=== PATIENT | female | born 1950 | race Caucasian/White ===

== ENCOUNTER → 2018-01-03 10:38 | Outpatient (CLI) | payer OTHER, SELFPAY | PROVIDERS: Family Provider Family Medicine; PCP Family Medicine; Visit Provider Physician Assistant | DX: G96.0 Cerebrospinal fluid leak (principal); H92.11 Otorrhea, right ear | CPT/HCPCS: 87070; 87075; 87077; 87147; 87186; 87205 ==

== ENCOUNTER → 2018-01-19 12:28 | Outpatient (CLI) | payer OTHER, SELFPAY | PROVIDERS: Family Provider Family Medicine; PCP Family Medicine; Visit Provider Physician Assistant | DX: H92.11 Otorrhea, right ear (principal) | CPT/HCPCS: 87070; 87077; 87147; 87186; 87205 ==

== ENCOUNTER → 2018-07-21 11:11 | Outpatient (CLI) | payer OTHER, SELFPAY ==
[2018-07-21 12:15] LABS: Cholesterol 213 mg/dL (140-199); HDL Cholesterol 39 mg/dL (40-60); LDL Cholesterol Calculated 135 mg/dL (<100); Triglycerides 195 mg/dL (35-150)
[2018-07-21 12:18] LABS: Hemoglobin A1C% w Est Avg Glu 7.4 % (4.0-6.0)
== END ==
PROVIDERS: PCP Student in an Organized Health Care Education/Training Program; Visit Provider Student in an Organized Health Care Education/Training Program
DX: E11.9 Type 2 diabetes mellitus without complications (principal)
CPT/HCPCS: 36415; 80061; 83036

== ENCOUNTER → 2019-05-17 13:27 | Outpatient (CLI) | payer OTHER, SELFPAY ==
[2019-05-17 14:36] LABS: Hemoglobin A1C% w Est Avg Glu 7.6 % (4.0-6.0)
[2019-05-17 15:07] LABS: BUN Creatinine Ratio 18.3 (6-22); Blood Urea Nitrogen 11 mg/dL (7-17); Carbon Dioxide 26 mmol/L (22-32); Chloride 103 mmol/L (98-107); Estimated Glomerular Filt Rate > 60.0 mL/min (>60); Glucose 150 mg/dL (80-110); HEMOLYSIS < 15 (0-50); Potassium 4.9 mmol/L (3.4-5.1); Sodium 138 mmol/L (137-145)
[2019-05-17 16:56] LABS: Microalbumin Urine Random 3.6 mg/dL (0-1.6)
[2019-05-17 16:57] LABS: Creatinine Urine Random 201.7 mg/dL; Microalbumi Creatinin Ratio Ur 17.8 ug/mg CR (<30)
== END ==
PROVIDERS: PCP Student in an Organized Health Care Education/Training Program; Visit Provider Student in an Organized Health Care Education/Training Program
DX: E11.9 Type 2 diabetes mellitus without complications (principal); I10 Essential (primary) hypertension
CPT/HCPCS: 36415; 80048; 82043; 82570; 83036

== ENCOUNTER 2020-05-29 10:31 | Emergency (ER) | payer OTHER, SELFPAY ==
[2020-05-29] VITALS (8 sets, daily range): BP systolic 110–198; BP diastolic 56–84; PULSE 81–87; RESP 16–31; O2SAT 93–95; BMI 32.1
--- NOTE | 2020-05-29 10:32 | DI.CT.S_ITS ---
PROCEDURE: CT STROKE INDICATIONS: Wake-up stroke like symptoms TECHNIQUE: Noncontrast 4.5 mm thick angled axial sections acquired from the foramen magnum to the vertex, with coronal reformats. For radiation dose reduction, the following was used: automated exposure control, adjustment of mA and/or kV according to patient size. COMPARISON: None. FINDINGS: Image quality: Excellent. CSF spaces: Basal cisterns are patent. No extra-axial fluid collections. The ventricles are symmetric in size and shape. Brain: No intracranial bleeds or masses. There is cerebral volume loss for age, with resultant ventricular and sulcal prominence. There are periventricular and deep white matter chronic small vessel ischemic changes. There is intracranial internal carotid artery atherosclerosis. Skull and face: Calvarium and visualized facial bones appear intact, without suspicious lesions. Sinuses: Visualized sinuses and mastoids are clear. IMPRESSION: Mild microvascular atherosclerotic change in the deep white matter of each hemisphere, but no sign of hemorrhage or stroke or underlying mass lesion. This information was immediately called to the emergency room physician caring for the patient at 10:53 a.m. This study fulfills neurological imaging criteria for inclusion or exclusion of acute stroke therapies based on available published neurological guidelines. Dictated by: Isai Leon M.D. on 05/29/2020 at 10:53 Approved by: Isai Leon M.D. on 05/29/2020 at 10:56
--- NOTE | 2020-05-29 10:59 | DI.CT.S_ITS ---
PROCEDURE: CT ANGIO HEAD AND NECK INDICATIONS: Wake-up stroke like symptoms TECHNIQUE: Noncontrast images were performed and reported separately. After the administration of intravenous contrast, 1 mm thick sections acquired from the aortic arch through the [place]. Post-contrast 4.5 mm thick sections then re-acquired from the foramen magnum to the vertex. 3-dimensional wopeens-seledmkvb-dhcvckiuih (MIP) and/or volume rendering reformats were acquired of the central intracranial vasculature and neck separately. COMPARISON: [facility], CT, SINUS WITH CONTRAST, 09/21/2013, 11:27. [facility], CT, CT STROKE, 05/29/2020, 10:31. FINDINGS: Image quality: Excellent. BRAIN: CSF spaces: Ventricles are normal in size and shape. Basal cisterns are patent. No extra-axial fluid collections. Brain: No midline shift. No intracranial bleeds or masses. Aburto-white matter interface appears intact. Skull and face: Calvarium and facial bones appear intact, without suspicious lesions. Orbits appear normal. Sinuses: Focal prominent left frontal and maxillary sinus disease is seen. Moderate mucosal thickening is seen within the ethmoid air cells. Iogw-ig-mqalcjwl mucosal thickening is seen within the sphenoid sinuses. No abnormal fluid is seen within the mastoid air cells. HEAD CT ANGIOGRAPHY: Anterior circulation: Intracranial internal carotid arteries are normal in size and flow. The flow within the paired anterior cerebral arteries is normal and symmetric. The flow within the middle cerebral arteries is normal and symmetric. The anterior communicating artery is seen. No aneurysms are seen. Posterior circulation: Visualized portions of the vertebral arteries demonstrate normal caliber, and join to form a normal appearing basilar artery. Flow within the posterior cerebral arteries is normal and symmetric. No aneurysms are seen. NECK CT ANGIOGRAPHY: Carotid system: The great vessels demonstrate a conventional anatomy as they arise from the aortic arch. The origins of the common carotid arteries appear patent. The common carotid arteries demonstrate normal caliber and courses. The bifurcation regions demonstrate atherosclerotic irregularity and calcification. There is 50-60% narrowing seen involving the left proximal internal carotid artery. On the right, there is approximately 40% luminal narrowing seen. The more distal internal carotid arteries demonstrate normal course and caliber. Generalized soft plaque can be seen within the common carotid arteries and within the bifurcation regions. Posterior circulation: The origins of the vertebral arteries both appear patent. The more superior extracranial portions of both vertebral arteries also demonstrate normal courses and calibers. Scattered areas of calcification can be seen, without hemodynamically significant narrowing. The right vertebral artery is dominant to the left. They join to form a normal appearing basilar artery. Soft tissues: Visualized neck soft tissues demonstrate no suspicious abnormalities. Bones: No suspicious bony lesions. Visualized cervical spine appears normally aligned. IMPRESSION: No significant intracranial arterial abnormality is seen. 50-60% narrowing seen involving the left proximal internal carotid artery. Generalized soft plaque with mild calcification can be seen within the common carotid arteries and the bifurcation regions. Scattered areas of calcification can be seen throughout the vertebral arteries. Paranasal sinus disease is seen. Any quantitative measurements of stenosis were performed using NASCET criteria. Dictated by: Dre Del Rio M.D. on 05/29/2020 at 9:55 Approved by: Dre Del Rio M.D. on 05/29/2020 at 10:00
[2020-05-29 11:06] LABS: Add Manual Diff / Slide Review NO; Basophils Absolute Auto 100 /uL (0-100); Basophils Percent Auto 0.7 % (0-2); Eosinophils Absolute Auto 300 /uL (0-450); Eosinophils Percent Auto 2.4 % (2-4); Hematocrit 46.3 % (36-46); Hemoglobin 15.7 g/dL (12.0-16.0); Lymphocytes Absolute Auto 3100 /uL (1100-4500); Lymphocytes Percent Auto 29.4 % (25-40); Mean Corpuscular Hemoglobin 30.8 PG (26-34); Mean Corpuscular Volume 90.5 fL (80-100); Monocytes Absolute Auto 700 /uL (0-900); Monocytes Percent Auto 6.7 % (3-14); Neutrophils Absolute Auto 6500 /uL (1500-7000); Neutrophils Percent Auto 60.8 % (50-75); Platelet Count 316 X10^3/uL (150-400); Red Blood Cell Count 5.11 X10^6/uL (4.0-5.2); Red Cell Distribution Width 14.3 % (11.6-14.8); White Blood Cell Count 10.7 X10^3/uL (4.5-11.0)
[2020-05-29 11:12] LABS: Prothrombin Time 11.2 SECONDS (10.1-12.7)
[2020-05-29] MEDS: SODIUM CHLORIDE 0.9% 1,000 ML 150 ML IV (11:12)
[2020-05-29 11:15] LABS: PTT Partial Thromboplastin Tim 31 SECONDS (26.4-36.2)
[2020-05-29 11:17] LABS: Alanine Aminotransferase 10 IU/L (<35); Albumin 3.8 g/dL (3.5-5.0); Albumin Globulin Ratio 1.3 (1.0-2.8); Alkaline Phosphatase 69 U/L (38-126); Aspartate Aminotransferase 14 IU/L (14-36); BUN Creatinine Ratio 30.8 (6-22); Bilirubin Total 0.5 mg/dL (0.2-1.3); Blood Urea Nitrogen 16 mg/dL (7-17); Calcium 9.5 mg/dL (8.4-10.2); Carbon Dioxide 28 mmol/L (22-32); Chloride 104 mmol/L (98-107); Estimated Glomerular Filt Rate > 60.0 mL/min (>60); Globulin 2.9 g/dL (1.7-4.1); Glucose 134 mg/dL (80-110); HEMOLYSIS < 15 (0-50); Potassium 4.1 mmol/L (3.4-5.1); Sodium 135 mmol/L (137-145); Total Protein 6.7 g/dL (6.3-8.2)
--- NOTE | 2020-05-29 11:27 | ED.GENADULT ---
HPI - General Adult General Chief complaint: Weakness Stated complaint: Possible stroke Time Seen by Provider: 05/29/20 10:32 Source: patient and EMS Mode of arrival: EMS Limitations: no limitations History of Present Illness HPI narrative: 69-year-old woman with a history of hypertension, hyperlipidemia, diabetes, coronary artery disease post stenting who woke up this morning noting that her right side was weak. 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 She notes that both her right arm and right leg are slightly weak with her hand in her foot somewhat numb. She notes on smiling at that her smile is normal however rest she has complete loss of the nasolabial fold on the right side. She has some mild change to her voice(she describes it as deeper and more gravelly) but no overt dysarthria or aphasia. Related Data Home Medications Medication Instructions Recorded Confirmed cyanocobalamin (vitamin B-12) 1,000 mcg PO #0 03/28/17 05/17/19 aspirin 81 mg tablet,delayed 81 mg PO DAILY 07/21/18 05/17/19 release Previous Rx's Medication Instructions Recorded bupropion HCl 150 mg tablet,12 hr 150 mg PO BID #60 each 10/28/10 sustained-release amlodipine 10 mg tablet 10 mg PO QDAY #90 tab 03/14/19 gabapentin 300 mg capsule 300 mg PO TID #90 cap 03/14/19 metoprolol tartrate 50 mg tablet 75 mg PO BID #270 tab 05/17/19 insulin glulisine U-100 100 15 unit SUBCUT QAC #10 ml 05/22/19 unit/mL subcutaneous solution metformin 500 mg tablet 500 mg PO QACDINNER #30 tab 06/08/19 insulin glargine 100 unit/mL 50 unit SUBCUT BEDTIME #10 ml 07/01/19 subcutaneous solution tramadol 50 mg tablet 50 mg PO DAILY #30 tab 12/10/19 losartan 100 mg tablet 100 mg PO DAILY #90 tab 04/02/20 Allergies Allergy/AdvReac Type Severity Reaction Status Date / Time adhesive Allergy Severe RASH, Verified 05/29/20 11:02 BLISTERS ipratropium [IPRATROPIUM] Allergy Mild TROUBLE Verified 05/29/20 11:02 BREATHING codeine [CODEINE] AdvReac Severe GI UPSET Verified 05/29/20 11:02 meperidine [MEPERIDINE] AdvReac Severe NIGHTMARES Verified 05/29/20 11:02 Khbnmxu-Qkl-Fre Reductase AdvReac Severe Lower Verified 05/29/20 11:02 Inhibitor extremity weakness amitriptyline [AMITRIPTYLINE] AdvReac Mild RESTLESS Verified 05/29/20 11:02 LEGS, PARANOIA Review of Systems Review of Systems Narrative: Pertinent positive and negative findings as per HPI Remainder of review of systems is otherwise unremarkable for Constitutional: Fevers, chills, weakness ENT: No sore throat, neck pain, ear pain CV: Chest pain, palpitations, dyspnea on exertion Respiratory: Cough, wheeze, dyspnea GI: Nausea, vomiting, diarrhea, : Dysuria, hematuria, flank pain Skin: Rashes, nonhealing lesions Neuro: Syncope, dizziness, Patient History Medical History Chicken pox Chronic sinusitis COPD (chronic obstructive pulmonary disease) Diabetes mellitus Hypertension Measles Mixed hyperlipidemia Rheumatoid arthritis Surgical History History of carpal tunnel repair (1984) History of hysterectomy History of sinus surgery (~1999) Status post arthroscopy (1989) Status post delivery (1979) Status post delivery (1984) Status post cholecystectomy (1963) Family History Mother Diabetes mellitus Father Heart failure Sister Diabetes mellitus Sister Diabetes mellitus Social History Smoking Status: Current every day smoker Smoking Status: Current every day smoker tobacco type: cigarettes alcohol intake frequency: 0-2 drinks per day Substance Use Type: does not use Exam Narrative Exam Narrative: General: Healthy appearing, in no acute distress. Able to give a complete and coherent history. Well-nourished well-developed HEENT: Moist mucous membranes, normal sclera with reactive pupils, flattened right nasolabial fold Neck: No JVD, supple Respiratory: Lungs with scattered wheezing in all lung gray but no rales no rhonchi. Full and symmetrical air movement Cardiac: Regular rate and rhythm no murmurs no bruits Abdomen: Soft nontender good bowel tones, no flank pain Skin: Warm and dry, no rashes Neurologic: Right arm is slightly weak, right leg is slightly weak, decreased sensation to the right hand and right foot Extremities: No trauma, well perfused, clubbing of her fingers Psych: Cooperative, appropriate insight and affect RESULT SUMMARY: 5 points NIH Stroke Scale INPUTS: 1A: Level of consciousness ?> 0 = Alert; keenly responsive 1B: Ask month and age ?> 0 = Both questions right 1C: 'Blink eyes' & 'squeeze hands' ?> 0 = Performs both tasks 2: Horizontal extraocular movements ?> 0 = Normal 3: Visual gray ?> 0 = No visual loss 4: Facial palsy ?> 1 = Minor paralysis (flat nasolabial fold, smile asymmetry) 5A: Left arm motor drift ?> 0 = No drift for 10 seconds 5B: Right arm motor drift ?> 1 = Drift, but doesn't hit bed 6A: Left leg motor drift ?> 0 = No drift for 5 seconds 6B: Right leg motor drift ?> 1 = Drift, but doesn't hit bed 7: Limb Ataxia ?> 1 = Ataxia in 1 Limb 8: Sensation ?> 1 = Mild-moderate loss: less sharp/more dull 9: Language/aphasia ?> 0 = Normal; no aphasia 10: Dysarthria ?> 0 = Normal 11: Extinction/inattention ?> 0 = No abnormality Initial Vital Signs Initial Vital Signs: Vital Signs Pulse Rate 85 05/29/20 10:51 Respiratory Rate 16 05/29/20 10:51 Pulse Oximetry 95 05/29/20 10:51 Course Orders Ordered: ED Orders 05/29/20 10:32 CT Stroke Stat Complete Blood Count AUTO DIFF Stat Comprehensive Metabolic Panel Stat Partial Thromboplastin Time Stat Prothrombin Time INR Stat Urine Drug Screen, Rapid Stat EKG-12 Lead Stat 05/29/20 10:33 CT angio head and neck Stat 05/29/20 11:46 COVID19 Stat Sodium Chloride (Normal Saline 0.9%) 1,000 mls @ 150 mls/hr IV CONT MEGHAN Last Admin: 05/29/20 11:12 Dose: 150 mls/hr Documented by: MMINOR Vital Signs Vital signs: Vital Signs - 8 hr 05/29/20 10:51 05/29/20 11:00 05/29/20 11:03 Pulse Rate 85 86 87 Respiratory Rate 16 20 18 Blood Pressure 110/56 L Pulse Oximetry 95 95 93 05/29/20 11:17 Pulse Rate 82 Respiratory Rate 21 Blood Pressure 177/79 H Pulse Oximetry 94 Medical Decision Making Medical Records Medical records reviewed: Yes I reviewed the patient's medical records. Lab Data Lab results reviewed: Yes I reviewed the patient's lab results. Result diagrams: 05/29/20 10:55 05/29/20 10:55 Labs: Lab Results 05/29/20 05/29/20 05/29/20 Range/Units 10:55 10:55 10:55 WBC 10.7 (4.5-11.0) X10^3/uL RBC 5.11 (4.0-5.2) X10^6/uL Hgb 15.7 (12.0-16.0) g/dL Hct 46.3 H (36-46) % MCV 90.5 (80-100) fL MCH 30.8 (26-34) PG MCHC 34.0 (30-36) % RDW 14.3 (11.6-14.8) % Plt Count 316 (150-400) X10^3/uL Neut % (Auto) 60.8 (50-75) % Lymph % (Auto) 29.4 (25-40) % [place] % (Auto) 6.7 (3-14) % Eos % (Auto) 2.4 (2-4) % Baso % (Auto) 0.7 (0-2) % Neut # (Auto) 6500 (7946-2829) /uL Lymph # (Auto) 3100 (9748-0853) /uL [place] # (Auto) 700 (0-900) /uL Eos # (Auto) 300 (0-450) /uL Baso # (Auto) 100 (0-100) /uL PT 11.2 (10.1-12.7) SECONDS INR 1.0 (0.9-1.3) APTT 31 (26.4-36.2) SECONDS Sodium 135 L (137-145) mmol/L Potassium 4.1 (3.4-5.1) mmol/L Chloride 104 (98-107) mmol/L Carbon Dioxide 28 (22-32) mmol/L BUN 16 (7-17) mg/dL Creatinine 0.52 (0.52-1.04) mg/dL Estimated GFR > 60.0 (>60) mL/min BUN/Creatinine Ratio 30.8 H (6-22) Glucose 134 H (80-110) mg/dL Calcium 9.5 (8.4-10.2) mg/dL Total Bilirubin 0.5 (0.2-1.3) mg/dL AST 14 (14-36) IU/L ALT 10 (<35) IU/L Alkaline Phosphatase 69 (38-126) U/L Total Protein 6.7 (6.3-8.2) g/dL Albumin 3.8 (3.5-5.0) g/dL Globulin 2.9 (1.7-4.1) g/dL Albumin/Globulin Ratio 1.3 (1.0-2.8) Imaging Data CT scan - head: Radiologist's Impression: FINDINGS: Image quality: Excellent. CSF spaces: Basal cisterns are patent. No extra-axial fluid collections. The ventricles are symmetric in size and shape. Brain: No intracranial bleeds or masses. There is cerebral volume loss for age, with resultant ventricular and sulcal prominence. There are periventricular and deep white matter chronic small vessel ischemic changes. There is intracranial internal carotid artery atherosclerosis. Skull and face: Calvarium and visualized facial bones appear intact, without suspicious lesions. Sinuses: Visualized sinuses and mastoids are clear. IMPRESSION: Mild microvascular atherosclerotic change in the deep white matter of each hemisphere, but no sign of hemorrhage or stroke or underlying mass lesion. This information was immediately called to the emergency room physician caring for the patient at 10:53 a.m. This study fulfills neurological imaging criteria for inclusion or exclusion of acute stroke therapies based on available published neurological guidelines. Dictated by: Isai Leon M.D. on 05/29/2020 at 10:53 CTA Head and Neck: Radiologist's Impression: FINDINGS: Image quality: Excellent. CSF spaces: Basal cisterns are patent. No extra-axial fluid collections. The ventricles are symmetric in size and shape. Brain: No intracranial bleeds or masses. There is cerebral volume loss for age, with resultant ventricular and sulcal prominence. There are periventricular and deep white matter chronic small vessel ischemic changes. There is intracranial internal carotid artery atherosclerosis. Skull and face: Calvarium and visualized facial bones appear intact, without suspicious lesions. Sinuses: Visualized sinuses and mastoids are clear. IMPRESSION: Mild microvascular atherosclerotic change in the deep white matter of each hemisphere, but no sign of hemorrhage or stroke or underlying mass lesion. This information was immediately called to the emergency room physician caring for the patient at 10:53 a.m. This study fulfills neurological imaging criteria for inclusion or exclusion of acute stroke therapies based on available published neurological guidelines. Dictated by: Isai Leon M.D. on 05/29/2020 at 10:53 ECG Data Attestation: I personally reviewed and interpreted this ECG as follows: Interpretation: Sinus rhythm at 82 Right bundle branch block Leftward axis No acute ischemic changes MDM Narrative Medical decision making narrative: 69-year-old woman who woke up with obvious right-sided deficits that are not clearing. Clearly looks like a stroke without evidence of intracranial hemorrhage or large vessel occlusion. Recommended hospitalization. She is adamant that she would not stay at [facility]. Offered transfer to [facility] and she absolutely declined that as well. She adamantly declined any COVID testing to continue with additional workup. She wants to be discharged against medical advice. Will make arrangements for that with clear instructions that she is absolutely welcome to return at any point Discharge Plan Departure Patient Disposition: Left Against Medical Advice Clinical Impression: Stroke Qualifiers: CVA mechanism: unspecified Qualified Code(s): I63.9 - Cerebral infarction, unspecified Instructions: DI for Stroke-Ischemic Activity Restrictions/Additional Instructions: You had a stroke sometime last night Current best medical recommendation is hospital admission for continued workup and to make sure if you have worsening symptoms your being appropriately care for. I appreciate the fact that you do not want to stay at [facility]. I have offered to contact [facility] as well. During this COVID pandemic time, all hospitals are requiring COVID testing prior to admission or procedures. If you have new or worsening symptoms or change your mind at any point, please note that you are welcome to return to the emergency department Prescriptions: No Action cyanocobalamin (vitamin B-12) 1,000 MCG tablet extended release 1,000 mcg PO Qty: 0 RF: 0 aspirin 81 mg tablet,delayed release (DR/EC) 81 mg PO DAILY RF: 0 Apidra U-100 Insulin 100 unit/mL solution 15 unit SUBCUT QAC Qty: 10 RF: 5 metformin 500 mg tablet 500 mg PO QACDINNER Qty: 30 RF: 0 insulin glargine 100 unit/mL solution 50 unit SUBCUT BEDTIME Qty: 10 RF: 5 tramadol 50 mg tablet 50 mg PO DAILY Qty: 30 RF: 0 losartan 100 mg tablet 100 mg PO DAILY Qty: 90 RF: 0 metoprolol tartrate 50 mg tablet 75 mg PO BID Qty: 270 RF: 1 amlodipine 10 mg tablet 10 mg PO QDAY Qty: 90 RF: 3 gabapentin 300 mg capsule 300 mg PO TID Qty: 90 RF: 0 bupropion HCl [Wellbutrin SR] 150 mg tablet sustained-release 12 hr 150 mg PO BID Qty: 60 RF: 2 Referrals: Miscellaneous,Doctor, MD [Primary Care Provider] - Stand Alone Forms: Against Medical Advice
== END 2020-05-29 12:45 | disposition left against medical advice (07) ==
PROVIDERS: Emergency Provider Emergency Medicine
DX: I63.9 Cerebral infarction, unspecified (principal); I10 Essential (primary) hypertension; E78.5 Hyperlipidemia, unspecified; E11.9 Type 2 diabetes mellitus without complications; I25.10 Atherosclerotic heart disease of native coronary artery without angina pectoris; J44.9 Chronic obstructive pulmonary disease, unspecified
CPT/HCPCS: 36415; 70450; 70496; 70498; 80053; 85025; 85610; 85730; 93005; 93010; 96360; 99283; 99284; 99291; 99292; Q9967

== ENCOUNTER 2022-03-23 09:14 | Emergency (ER) | payer OTHER, SELFPAY ==
[2022-03-23 09:28] VITALS: BP 167/72; PULSE 71; RESP 16; TEMP 36.9; O2SAT 99; BMI 33.4
--- NOTE | 2022-03-23 09:29 | PC.NURSE ---
Dr Gramajo at bedside with US machine to determine if foreign body in wound. appears to have no metal inside the skin. pt already on PO minocycline for pre-existing condition.
--- NOTE | 2022-03-23 09:30 | ED.WOUNDLAC ---
HPI - Wound/Laceration General Chief Complaint: Wound/Laceration Stated Complaint: LT leg sliver might be metal Time Seen by Provider: 03/23/22 09:21 Source: patient Mode of arrival: Ambulatory Limitations: no limitations History of Present Illness HPI narrative: 71-year-old female. Is a diabetic. Has on oral minocycline and also topical clindamycin for hidradenitis who is here for evaluation of a wound to her left avilez. This occurred approximately 10 days ago. She thinks that she was poked with a piece of metal when she is concerned that maybe something is stuck. Last evening it was uncomfortable for her. No surrounding erythema. Related Data Home Medications Medication Instructions Recorded Confirmed cyanocobalamin (vitamin B-12) 1,000 mcg PO ##0 03/28/17 05/17/19 1,000 mcg tablet,extended release aspirin 81 mg tablet,delayed 81 mg PO DAILY 07/21/18 05/17/19 release Previous Rx's Medication Instructions Recorded bupropion HCl 150 mg tablet,12 hr 150 mg PO BID #60 ea 10/28/10 sustained-release (Wellbutrin SR) amlodipine 10 mg tablet 10 mg PO QDAY #90 tabs 03/14/19 gabapentin 300 mg capsule 300 mg PO TID #90 caps 03/14/19 metoprolol tartrate 50 mg tablet 75 mg PO BID #270 tabs 05/17/19 insulin glulisine U-100 100 15 unit (0.15 mL) SUBCUT QAC #10 mL 05/22/19 unit/mL subcutaneous solution (Apidra U-100 Insulin) metformin 500 mg tablet 500 mg PO QACDINNER #30 tabs 06/08/19 insulin glargine 100 unit/mL 50 unit (0.5 mL) SUBCUT BEDTIME 07/01/19 subcutaneous solution #10 mL tramadol 50 mg tablet 50 mg PO DAILY #30 tabs 12/10/19 losartan 100 mg tablet 100 mg PO DAILY #90 tabs 04/02/20 Allergies Allergy/AdvReac Type Severity Reaction Status Date / Time adhesive Allergy Severe RASH, Verified 05/29/20 11:02 BLISTERS ipratropium [IPRATROPIUM] Allergy Mild TROUBLE Verified 05/29/20 11:02 BREATHING codeine [CODEINE] AdvReac Severe GI UPSET Verified 05/29/20 11:02 meperidine [MEPERIDINE] AdvReac Severe NIGHTMARES Verified 05/29/20 11:02 Fbjidqj-NQC-SiE Reductase AdvReac Severe Lower Verified 05/29/20 11:02 Inhibitor extremity [Yhfmnme-Oco-Zhl Reductase weakness Inhibitor] amitriptyline [AMITRIPTYLINE] AdvReac Mild RESTLESS Verified 05/29/20 11:02 LEGS, PARANOIA Review of Systems Constitutional Constitutional: Reports system reviewed and no additional complaints, except as documented Musculoskeletal Musculoskeletal: Reports system reviewed and no additional complaints, except as documented Integumentary/Breasts Skin/Breast: Reports system reviewed and no additional complaints, except as documented Neurologic Neurologic: Reports system reviewed and no additional complaints, except as documented Patient History Medical History Chicken pox Chronic sinusitis COPD (chronic obstructive pulmonary disease) Diabetes mellitus Hypertension Measles Mixed hyperlipidemia Rheumatoid arthritis Surgical History History of carpal tunnel repair (1984) History of hysterectomy History of sinus surgery (~1999) Status post arthroscopy (1989) Status post delivery (1979) Status post delivery (1984) Status post cholecystectomy (1963) Family History Mother Diabetes mellitus Father Heart failure Sister Diabetes mellitus Sister Diabetes mellitus Social History Smoking Status: Current every day smoker Smoking Status: Current every day smoker tobacco type: cigarettes alcohol intake frequency: 0-2 drinks per day Substance Use Type: does not use Exam Initial Vital Signs Initial Vital Signs: Vital Signs Temperature 98.4 F 03/23/22 09:28 Pulse Rate 71 03/23/22 09:28 Respiratory Rate 16 03/23/22 09:28 Blood Pressure 167/72 H 03/23/22 09:28 Pulse Oximetry 99 03/23/22 09:28 Oxygen Delivery Method 03/23/22 09:28 [facility] Head: normal to inspection and normocephalic Resp Effort & Inspection: normal respiratory effort Cardio Rate: regular rate Skin Other: There is a 0.25 cm wound to left anterior avilez distal 1/3 with no surrounding erythema. There is no drainage. Neuro Sensory Exam: no sensory deficits noted Extrem General: No edema Course Orders Ordered: Diphtheria/Tetanus/Acell Pertussis (Tet,Diph,Pertuss(Acell),Vac/Pf 0.5 Ml Syringe) 0.5 ml IM .ONCE ONE Stop: 03/23/22 09:32 Vital Signs Vital signs: Vital Signs - 8 hr 03/23/22 09:28 Temperature 98.4 F Pulse Rate 71 Respiratory Rate 16 Blood Pressure 167/72 H Pulse Oximetry 99 Oxygen Delivery Method Room Air MDM - Wound/Laceration MDM Narrative Medical decision making narrative: Bedside ultrasound shows no deep abscess. There is no metallic foreign body. No organic foreign body noted. There is no surrounding erythema from the area. She is afebrile. Will update her tetanus. She was given conservative measures that she can try. She expressed understanding and agreement. Discharge Plan Departure Patient Disposition: Home Clinical Impression: Puncture wound of skin Instructions: DI for Puncture Wound Activity Restrictions/Additional Instructions: Continue to take all of your medications as directed. Your tetanus shot was updated today. You can use topical antibiotic ointment and also shower like normal using soap and water. Return to the emergency department for any new or worsening symptoms. Prescriptions: No Action cyanocobalamin (vitamin B-12) 1,000 MCG tablet extended release 1,000 mcg PO Qty: 0 aspirin 81 mg tablet,delayed release (DR/EC) 81 mg PO DAILY Apidra U-100 Insulin 100 unit/mL solution 15 unit SUBCUT QAC Qty: 10 5RF Rx Instructions: max daily doese 50 units metformin 500 mg tablet 500 mg PO QACDINNER Qty: 30 0RF insulin glargine 100 unit/mL solution 50 unit SUBCUT BEDTIME Qty: 10 5RF tramadol 50 mg tablet 50 mg PO DAILY Qty: 30 0RF losartan 100 mg tablet 100 mg PO DAILY Qty: 90 0RF Rx Instructions: PT DUE FOR FOLLOW UP W/PCP PRIOR TO END OF RX. PLEASE CALL TO SCHED APPT. THANKS. 04/02/20 metoprolol tartrate 50 mg tablet 75 mg PO BID Qty: 270 1RF amlodipine 10 mg tablet 10 mg PO QDAY Qty: 90 3RF gabapentin 300 mg capsule 300 mg PO TID Qty: 90 0RF bupropion HCl [Wellbutrin SR] 150 mg tablet sustained-release 12 hr 150 mg PO BID Qty: 60 2RF Referrals: Ac Gonzalez DO [Primary Care Provider] -
[2022-03-23] MEDS: TET,DIPH,PERTUSS(ACELL),VAC/PF 0.5 ML SYRINGE IM (09:36)
== END 2022-03-23 09:43 | disposition home or self-care (01) ==
PROVIDERS: Emergency Provider Emergency Medicine; PCP Family Medicine
DX: S81.832A Puncture wound without foreign body, left lower leg, initial encounter (principal); W26.9XXA Contact with unspecified sharp object(s), initial encounter; Z23 Encounter for immunization
CPT/HCPCS: 90471; 99283; 90715

== ENCOUNTER 2025-01-29 16:04 | Emergency (ER) | payer MEDICARE, SELFPAY ==
[2025-01-29] VITALS (8 sets, daily range): BP systolic 177–214; BP diastolic 75–95; PULSE 93–104; RESP 20–26; TEMP 36.9–37.5; O2SAT 93–99; BMI 32.1
--- NOTE | 2025-01-29 16:34 | EKG_ITS ---
[address] [address] Test Date: 2025-01-29 Pat Name: Melo Hall Department: [facility] Room: Gender: Female Kai [place]: JAMISON : 1950 Requested By: Order Number: [id number] Reading MD: Nitin Pacheco MD Measurements Intervals [place] Rate: 96 P: 51 NM: 186 QRS: -85 QRSD: 144 T: 8 QT: 400 QTc: 505 Interpretive Statements Sinus rhythm with occasional premature ventricular complexes Left axis deviation Right bundle branch block (old) Electronically Signed On 01-30-2025 7:37:21 PDT by Nitin Pacheco MD
--- NOTE | 2025-01-29 16:34 | DI.RAD.S_ITS ---
PROCEDURE: XR CHEST 1V INDICATIONS: Shortness of breath TECHNIQUE: One view of the chest was acquired. COMPARISON: [facility], CR, XR CHEST 2 VIEWS, 08/05/2024, 16:09. [facility], CR, CHEST 1 VIEW, 03/04/2015, 11:18. FINDINGS: Surgical changes and devices: None. Lungs and pleura: Mild generalized interstitial prominence can be seen No pleural effusions or pneumothorax. Low lung volumes are noted. This causes a crowded appearance to the lung markings and limits evaluation. Mediastinum: Mediastinal contours appear normal. Heart size is normal. Atherosclerotic calcification of the aortic arch is noted. Bones and chest wall: No suspicious bony lesions. Focal significant right shoulder degenerative change is seen. Milder degenerative changes are seen elsewhere. Overlying soft tissues appear unremarkable. IMPRESSION: Mild generalized interstitial prominence can be seen. Please consider mild pulmonary edema. Dictated by: Dre Del Rio M.D. on 01/29/2025 at 15:52 Approved by: Dre Del Rio M.D. on 01/29/2025 at 15:53
[2025-01-29 16:40] LABS: Add Manual Diff / Slide Review NO; Hematocrit 43.8 % (36-46); Hemoglobin 15.1 g/dL (12.0-16.0); Lymphocytes Absolute Auto 1000 /uL (1100-4500); Mean Corpuscular HGB Conc 34.6 % (30-36); Mean Corpuscular Hemoglobin 30.5 PG (26-34); Mean Corpuscular Volume 88.1 fL (80-100); Platelet Count 259 X10^3/uL (150-400)
[2025-01-29 16:47] LABS: INR 1.1 (0.9-1.3); Prothrombin Time 12.0 SECONDS (9.4-12.5)
[2025-01-29 16:48] LABS: Alanine Aminotransferase 14 IU/L (<35); Albumin 4.2 g/dL (3.5-5.0); Albumin Globulin Ratio 1.4 (1.0-2.8); Alkaline Phosphatase 82 U/L (38-126); Blood Urea Nitrogen 10 mg/dL (7-17); Calcium 9.3 mg/dL (8.4-10.2); Carbon Dioxide 23 mmol/L (22-32); Chloride 100 mmol/L (98-107); Estimated Glomerular Filt Rate > 60 mL/min (>60); Globulin 3.1 g/dL (1.7-4.1); Glucose 113 mg/dL (70-99); Potassium 4.0 mmol/L (3.4-5.1); Sodium 133 mmol/L (137-145); Total Protein 7.3 g/dL (6.3-8.2)
[2025-01-29 16:49] LABS: Lactate (Lactic Acid) 1.0 mmol/L (0.7-2.1)
[2025-01-29 17:11] LABS: HEMOLYSIS < 15 (0-50); NT-proBNP (BNP-Adult 18+) 2550 pg/mL (<125); Troponin I 0.019 ng/mL (0.01-0.034)
[2025-01-29 17:15] LABS: Influenza A - CEPHEID Flu A NEGATIVE (NEGATIVE); Influenza B - CEPHEID Flu B NEGATIVE (NEGATIVE)
[2025-01-29 17:18] LABS: COVID-19 CEPHEID 4-PLEX PCR POSITIVE (Negative)
--- NOTE | 2025-01-29 18:41 | ED.GENADULT ---
HPI - General Adult General Chief complaint: Upper Respiratory Symptoms Stated complaint: dehydrated? low BS Type 1 DM Time Seen by Provider: 01/29/25 18:22 Source: patient, RN notes reviewed and old records reviewed Limitations: no limitations History of Present Illness HPI narrative: 74-year-old female history of diabetes on insulin, hypertension, dyslipidemia, CHF, COPD, rheumatoid arthritis who presents with headache, patient denies any chest pain she denies any new shortness of breath to myself. She denies any cough. Denies any nausea or vomiting. Denies any issues like diarrhea or constipation. She notes chronic wounds on her lower extremity. Was recently seen at [facility] started on what sounds like Bactrim she has been taking that. She did see wound care for several months for these wounds but stopped going as she states they debrided it but did not do anything else but she has had some increased pain at the sites which is what prompted her to go to [facility]. She denies fevers. Is having blood sugars in the 90s notes her glucose is typically in the 120. Patient is quite adamant that she does not have COVID. She is also quite adamant that she does not wish to see a different wound care provider. Related Data Home Medications ?Medication ?Instructions ?Recorded ?Confirmed cyanocobalamin (vitamin B-12) 1,000 mcg PO ##0 03/28/17 05/17/19 1,000 mcg tablet,extended release aspirin 81 mg tablet,delayed 81 mg PO DAILY 07/21/18 05/17/19 release Previous Rx's ?Medication ?Instructions ?Recorded bupropion HCl 150 mg tablet,12 hr 150 mg PO BID #60 ea 10/28/10 sustained-release (Wellbutrin SR) amlodipine 10 mg tablet 10 mg PO QDAY #90 tabs 03/14/19 gabapentin 300 mg capsule 300 mg PO TID #90 caps 03/14/19 metoprolol tartrate 50 mg tablet 75 mg (1.5 x 50 mg) PO BID #270 05/17/19 tabs insulin glulisine U-100 100 15 unit (0.15 mL) SUBCUT QAC #10 mL 05/22/19 unit/mL subcutaneous solution (Apidra U-100 Insulin) metformin 500 mg tablet 500 mg PO QACDINNER #30 tabs 06/08/19 insulin glargine 100 unit/mL 50 unit (0.5 mL) SUBCUT BEDTIME 07/01/19 subcutaneous solution #10 mL tramadol 50 mg tablet 50 mg PO DAILY #30 tabs 12/10/19 losartan 100 mg tablet 100 mg PO DAILY #90 tabs 04/02/20 tramadol 50 mg tablet 50 mg PO DAILY #7 tabs 01/29/25 Allergies Allergy/AdvReac Type Severity Reaction Status Date / Time adhesive Allergy Severe RASH, Verified 05/29/20 11:02 BLISTERS ipratropium (IPRATROPIUM) Allergy Mild TROUBLE Verified 05/29/20 11:02 BREATHING codeine (CODEINE) AdvReac Severe GI UPSET Verified 05/29/20 11:02 meperidine (MEPERIDINE) AdvReac Severe NIGHTMARES Verified 05/29/20 11:02 Lmxylnv-ITX-UsW Reductase AdvReac Severe Lower Verified 05/29/20 11:02 Inhibitor (Mfrouga-Nzd-Wkf extremity Reductase Inhibitor) weakness amitriptyline (AMITRIPTYLINE) AdvReac Mild RESTLESS Verified 05/29/20 11:02 LEGS, PARANOIA Review of Systems Review of Systems ROS Unobtainable: All systems reviewed & are unremarkable except as noted in HPI and below Patient History Medical History Mixed hyperlipidemia Chronic sinusitis Chicken pox Measles COPD (chronic obstructive pulmonary disease) Diabetes mellitus Hypertension Rheumatoid arthritis Surgical History History of sinus surgery (~1999) History of hysterectomy Status post delivery (1984) Status post delivery (1979) Status post cholecystectomy (1963) Status post arthroscopy (1989) History of carpal tunnel repair (1984) Family History Mother Diabetes mellitus Father Heart failure Sister Diabetes mellitus Sister Diabetes mellitus tobacco type: cigarettes alcohol intake frequency: 0-2 drinks per day Exam Narrative Exam Narrative: GEN: well nourished, well appearing female, alert and oriented x 3, patient appears to be in mild distress. Patient has ambulated to the bathroom several times without any issue. HEENT: Atraumatic, pupils are equal round reactive to light, extraocular movements are intact, nares are clear, TMs are clear with no fluid, there is no conjunctival pallor. Throat is clear without any exudates, erythema, tonsillar enlargement or uvular deviation HEART: Regular rate and rhythm without murmur, clicks, rubs. Pulses are equal in upper and lower extremities LUNGS:Lungs clear to auscultation, no wheezes, rales, crackles, chest moves symmetrically ABD:bowel sounds normal, soft, non-tender, no guarding, rebound, rigidity, no masses noted, no hepatosplenomegaly :No CVA tenderness. MSCL: Non-tender, no muscle atrophy, muscles strength 5/5 upper and lower extremities, full range of motion, normal gait. Patient does have 2 nickel sized wounds her left anterolateral avilez with ulceration through the skin, there was no surrounding erythema, there was no purulent drainage. Those no foul odor. The areas non tender to light touch. Patient has pedal pulses bilaterally. Legs are warm with good color. NEURO:CN 2-12 intact, sensation normal Initial Vital Signs Initial Vital Signs: Vital Signs Pulse Rate 104 H 01/29/25 16:20 Pulse Oximetry 95 01/29/25 16:20 Course Orders Ordered: ED Orders 01/29/25 16:28 Complete Blood Count AUTO DIFF Stat Comprehensive Metabolic Panel Stat Covid-19 + FLU A/B + RSV - PCR Stat Lactate (Lactic Acid) Stat NT-proBNP (BNP-Adult 18+) Stat Prothrombin Time INR Stat Troponin I Stat 01/29/25 16:34 XR chest 1V Stat EKG-12 Lead Stat Measure peak expiratory flow STAT Discontinued Medications Acetaminophen (Acetaminophen 325 Mg Tablet) 975 mg PO NOW ONE Stop: 01/29/25 18:24 Last Admin: 01/29/25 18:48 Dose: 975 mg Documented By: GLENNA Vital Signs Vital signs: Vital Signs - 8 hr 01/29/25 16:20 01/29/25 16:21 01/29/25 16:21 Temperature Pulse Rate 104 H 102 H Respiratory Rate Blood Pressure 214/84 H Pulse Oximetry 95 95 Oxygen Delivery Method 01/29/25 16:30 01/29/25 16:30 01/29/25 17:00 Temperature 99.5 F Pulse Rate 103 H 98 H 95 H Respiratory Rate 20 20 25 H Blood Pressure 214/84 H Pulse Oximetry 95 95 96 Oxygen Delivery Method Room Air 01/29/25 17:01 01/29/25 17:01 01/29/25 17:30 Temperature Pulse Rate 94 H 93 H Respiratory Rate 26 H 23 Blood Pressure 177/75 H Pulse Oximetry 96 93 Oxygen Delivery Method 01/29/25 17:30 01/29/25 18:00 01/29/25 18:00 Temperature Pulse Rate 94 H Respiratory Rate 20 Blood Pressure 184/82 H 192/95 H Pulse Oximetry 99 Oxygen Delivery Method 01/29/25 18:30 Temperature 98.5 F Pulse Rate Respiratory Rate Blood Pressure Pulse Oximetry Oxygen Delivery Method Medical Decision Making Lab Data 01/29/25 16:28 01/29/25 16:28 Labs: Lab Results 01/29/25 01/29/25 Range/Units 16:23 16:28 WBC 5.7 (4.5-11.0) X10^3/uL RBC 4.97 (4.0-5.2) X10^6/uL Hgb 15.1 (12.0-16.0) g/dL Hct 43.8 (36-46) % MCV 88.1 (80-100) fL MCH 30.5 (26-34) PG MCHC 34.6 (30-36) % RDW 15.7 H (11.6-14.8) % Plt Count 259 (150-400) X10^3/uL Neut % (Auto) 64.1 (50-75) % Lymph % (Auto) 16.7 L (25-40) % [place] % (Auto) 16.4 H (3-14) % Eos % (Auto) 1.6 L (2-4) % Baso % (Auto) 1.2 (0-2) % Neut # (Auto) 3700 (5622-3095) /uL Lymph # (Auto) 1000 L (4343-3446) /uL [place] # (Auto) 900 (0-900) /uL Eos # (Auto) 100 (0-450) /uL Baso # (Auto) 100 (0-100) /uL PT 12.0 (9.4-12.5) SECONDS INR 1.1 (0.9-1.3) Sodium 133 L (137-145) mmol/L Potassium 4.0 (3.4-5.1) mmol/L Chloride 100 (98-107) mmol/L Carbon Dioxide 23 (22-32) mmol/L BUN 10 (7-17) mg/dL Creatinine 0.61 (0.52-1.04) mg/dL Estimated GFR > 60 (>60) mL/min BUN/Creatinine Ratio 16.4 (6-22) Glucose 113 H (70-99) mg/dL POC Whole Bld Glucose 120 H (70-99) mg/dL Lactate 1.0 (0.7-2.1) mmol/L Calcium 9.3 (8.4-10.2) mg/dL Total Bilirubin 0.5 (0.2-1.3) mg/dL AST 19 (14-36) IU/L ALT 14 (<35) IU/L Alkaline Phosphatase 82 (38-126) U/L Troponin I 0.019 (0.01-0.034) ng/mL NT-Pro-B Natriuret Pep 2550 H (<125) pg/mL Total Protein 7.3 (6.3-8.2) g/dL Albumin 4.2 (3.5-5.0) g/dL Globulin 3.1 (1.7-4.1) g/dL Albumin/Globulin Ratio 1.4 (1.0-2.8) SARS-CoV-2 (PCR) Positive H (Negative) Influenza A (RT-PCR) Flu a negative (NEGATIVE) Influenza B (RT-PCR) Flu b negative (NEGATIVE) RSV (PCR) Negative (Negative) MDM Narrative Medical decision making narrative: Labs show white count of 5.7 hemoglobin of 15 platelets of 259, predominance of monocytes, INR is 1.1, sodium is 133 was 135 in May of 2020 otherwise normal electrolytes BUN and creatinine are appropriate glucose is 113, troponin 0.019 with a BNP of 2550. Patient does not have any priors for comparison. Chest x-ray shows mild generalized interstitial prominence sitter mild pulmonary edema. Sinus rhythm occasional PVCs rate of 96 MO 186 QRS of 144 QTC of 505. Patient is positive for COVID on her COVID/influenza/RSV swab Patient has a acetaminophen in the department. 74-year-old female symptoms do seem consistent with the current COVID infection. Patient is adamant she does not have COVID. She does note 2 small wounds on her anterior leg has been there for 4+ months. She was following with the wound care with regular debridement but quit seeing them as she felt it was not helpful. She was seen at [facility] started on Bactrim which she is currently taking. Workup today shows a slight hyponatremia BNP is 2500 although no priors for comparison. Patient is ambulating in overall well-appearing here in the department and felt appropriate for discharge home. Discharge Plan Departure Patient Disposition: Home Clinical Impression: COVID-19 virus infection, Chronic wound of extremity Instructions: DI for COVID-19 (Suspected or Confirmed ) Activity Restrictions/Additional Instructions: Follow up with your physician. If you prefer not to see wound care I would recommend following up with your physician regularly. I would recommend you continue your current antibiotic for your wounds. Please return if you have new or other concerning changes. Prescriptions: New tramadol 50 mg tablet 50 mg PO DAILY Qty: 7 0RF No Action cyanocobalamin (vitamin B-12) 1,000 MCG tablet extended release 1,000 mcg PO Qty: 0 aspirin 81 mg tablet,delayed release (DR/EC) 81 mg PO DAILY Apidra U-100 Insulin 100 unit/mL solution 15 unit SUBCUT QAC Qty: 10 5RF Rx Instructions: max daily doese 50 units metformin 500 mg tablet 500 mg PO QACDINNER Qty: 30 0RF insulin glargine 100 unit/mL solution 50 unit SUBCUT BEDTIME Qty: 10 5RF tramadol 50 mg tablet 50 mg PO DAILY Qty: 30 0RF losartan 100 mg tablet 100 mg PO DAILY Qty: 90 0RF Rx Instructions: PT DUE FOR FOLLOW UP W/PCP PRIOR TO END OF RX. PLEASE CALL TO SCHED APPT. THANKS. 04/02/20 metoprolol tartrate 50 mg tablet 75 mg PO BID Qty: 270 1RF amlodipine 10 mg tablet 10 mg PO QDAY Qty: 90 3RF gabapentin 300 mg capsule 300 mg PO TID Qty: 90 0RF bupropion HCl [Wellbutrin SR] 150 mg tablet sustained-release 12 hr 150 mg PO BID Qty: 60 2RF Referrals: Ac Gonzalez DO [Primary Care Provider, Family Practice] Stand Alone Forms: Patient Portal/API
[2025-01-29] MEDS: ACETAMINOPHEN 325 MG TABLET 975 MG PO (18:48)
== END 2025-01-29 19:11 | disposition home or self-care (01) ==
PROVIDERS: Emergency Medicine; Emergency Provider Emergency Medicine; PCP Family Medicine
DX: U07.1 COVID-19 (principal); S81.802A Unspecified open wound, left lower leg, initial encounter; E10.9 Type 1 diabetes mellitus without complications; Z79.4 Long term (current) use of insulin
CPT/HCPCS: 71045; 80053; 82962; 83605; 83880; 84484; 85025; 85610; 87637; 93005; 99283; 99284